=== PATIENT | male | born 1990 | race Caucasian/White ===

== ENCOUNTER 2017-11-11 08:38 | Day surgery (SDC) | payer OTHER, SELFPAY ==
[2017-11-07 13:41] VITALS: BMI 30.7
[2017-11-11] VITALS (8 sets, daily range): BP systolic 114–143; BP diastolic 78–96; PULSE 74–115; RESP 10–17; TEMP 36.1–36.8; O2SAT 92–100; BMI 30.2
[2017-11-11] MEDS: LACTATED RINGERS 1,000 ML 42 ML IV ×2 (09:06→10:40)
[2017-11-11] MEDS: MIDAZOLAM 2 MG/2 ML VIAL IV (09:28)
--- NOTE | 2017-11-11 09:39 | PM.OP.1 ---
Operative Date/Time/Diagnoses Date of procedure: 11/11/17 Time of procedure: 08:00 Pre-op diagnosis: Left peroneal tendinitis Left ankle ganglion cyst Post-op diagnosis: same Procedure & Clinicians Procedure: Open left peroneal tendon tenosynovectomy Left ankle ganglion cyst excision Left ankle peroneus quartus excision Same procedure as scheduled: Yes Indications: 36-year-old male with many years of left ankle pain located over the peroneal tendons coursing with them. He has failed a long course of physical therapy splinting pain medications and activity modifications. He was indicated for surgery secondary to persistent symptoms. The risks, benefits, alternatives to surgery were discussed the risks include pain, bleeding, infection, damage to nearby structures, lack of symptom relief, sural nerve injury, need for further procedures, implant complications, anesthetic complications, DVT, PE, stroke. He signed a written consent. Surgeon: Khoa Robison [employer] Laborer: Luciano Aguiar Click Yes if Unassisted: No Anesthesia Type: General and Local Operative Notes Findings: Ganglion cyst in the peroneal tendon sheath at the level of the distal fibula tip. Peroneus quartus was present with many fascial attachments to the longus tendon. Brevis had a low lying muscle belly. There is diffuse tenosynovitis. Closure Type: primary Specimen(s): none sent Estimated Blood Loss (mL): 5 Blood products transfused: none Tourniquet time (min): 51 Procedure in detail: The patient was met in the preop hold area on the day of the procedure. Operative extremity was signed. Consent was verified. He desired to proceed. He was brought to the operating room and surrendered to anesthesia. Once general anesthesia been obtained he was placed in a lateral position with the casas bag. An axillary roll was placed. All bony prominences were well padded. He was then prepped and draped in the standard sterile fashion. A surgical time-out was held where we confirmed the patient procedure, identity, allergies, images, antibiotics. All were in agreement we proceeded. An Esmarch was used to exsanguinate the limb and the tourniquet was elevated to 250 mm of mercury. An 8 cm incision was made directly over the course of the peroneal tendons and centered over the distal fibula tip. Sharp dissection was carried down to the peroneal tendon sheath and full-thickness skin flaps were created. The sural nerve or a branch of the sural nerve was seen distally near the incision site. It was protected during the case. I then made a small window superiorly in the peroneal tendon sheath and slid the scissors under that to free up any attached tendon. I then opened the peroneal tendon sheath completely to include the superior peroneal retinaculum and the inferior peroneal retinaculum. I then used scissor dissection to remove the extensive tenosynovitis and the ganglion cystic material from within the sheath. Peroneus quartus was seen in the typical location and had many attachments to pronators longus tendon. Peroneus Quartus was removed in its entirety. Peroneus brevis had low lying muscle belly and this was removed. The peroneal tendons themselves were healthy appearing without any degenerative tissue appreciated. I opened the distal portion near the peroneal tubercle as the tendon started to diverge and inspected them there as well. There were no bony prominences and the tubercle itself was smooth it was therefore left in place. Satisfied with the debridement I then irrigated the wound copiously. The superior and inferior peroneal retinaculum were repaired with interrupted 0 Vicryl. The peroneal tendon sheath was then repaired with a running 2 0 Vicryl. The subcuticular tissues were closed with a few 2 0 Vicryl and a running Monocryl was placed in the skin. 20 cc of 0.25% Marcaine without epinephrine was placed about the incision. Sterile dressing was then applied and a splint was placed with the ankle in an everted and dorsiflexed position. He was awakened and transition to the recovery room without issue. Complications: none Condition: stable Disposition: same day surgery Plan for aftercare: Nonweightbearing and splint for 2 weeks. Weightbearing as tolerated in cast for 2 weeks. Weightbearing as tolerated in boot for 2 weeks. Transition to a normal shoe with normal activities and then advance activities as tolerated.
[2017-11-11] MEDS: CEFAZOLIN 2 GM/100 ML FROZ.PIGGY IV (09:50)
--- NOTE | 2017-11-11 10:27 | SUR.OPER ---
Supine on padded OR bed, head on pillow, arms secured on padded arm boards at <90 degrees abduction, legs uncrossed, safety belt at thigh, tape over blanket over right lower leg, leg post at thigh for left operative leg.
[2017-11-11] MEDS: SODIUM CHLORIDE IRRIG SOLUTION 6,000 ML, EPINEPHrine 2 MG IRR ×2 (10:37→11:43)
[2017-11-11] MEDS: BUPIVACAINE 0.25% (PF) VIAL 30 ML INJ (10:41)
--- NOTE | 2017-11-11 13:00 | DI.RAD.S_ITS ---
PROCEDURE: XR KNEE LT 1TO2V INDICATIONS: POST OP ACL REPAIR TECHNIQUE: 3 views of the knee were acquired. COMPARISON: None. FINDINGS: Bones: No fractures or dislocations. No suspicious bony lesions. Recent ACL repair. Soft tissues: Joint effusion and gas is present status post recent ACL repair. Prepatellar soft tissue swelling. IMPRESSION: Recent ACL repair. Dictated by: Cleve VICENTE Interpreted: Álvaro Styles MD on 11/11/2017 at 13:33 Approved by: Álvaro Styles M.D. on 11/11/2017 at 13:58
[2017-11-11] MEDS: fentaNYL 100 MCG/2 ML INJ 50 MCG IV ×2 (13:27→13:32)
--- NOTE | 2017-11-11 13:32 | P.OP_ITS ---
Operative Date/Time/Diagnoses Date of procedure: 11/11/17 Time of procedure: 10:18 Pre-op diagnosis: Left ACL tear left meniscus tear Post-op diagnosis: same Procedure & Clinicians Procedure: left anterior cruciate ligament reconstruction with BTB autograft Left lateral meniscus debridement Same procedure as scheduled: Yes Indications: 27-year-old male sustained an ACL tear while he was skating on 26 August MRI and physical exam was consistent with an ACL tear and potentially meniscus injury. He underwent rehabilitation until his quadriceps was near full strength and range of motion was near full. He would like to return to skating and performing pivoting sports therefore reconstruction was selected. The risks, benefits, alternatives, were discussed with the patient. Risks include pain, bleeding, infection, lack of symptom relief, need for further procedures, implant complications, pain with kneeling, stiffness, repeat injury , DVT, P, and anesthetic complications. He signed a written consent form Surgeon: Khoa Robison [employer] Analyst: Luciano Aguiar Click Yes if Unassisted: No Anesthesia Type: General and Local Operative Notes Findings: examination under anesthesia: Range of motion was 0-135. Small effusion was present. He is stable to varus and valgus stressing at 0 and 30?. He is stable to dial at 30 and 90?. Jerad's was to be there was an abnormal pivot shift. Posterior drawer was stable. Diagnostic arthroscopy: Patellar cartilage was intact. Trochlear cartilage was intact. The gutters and suprapatellar pouch showed no loose bodies. The medial hemijoint showed the cartilage and meniscus to be intact. The lateral femoral condyle lateral tibial plateau was intact. Lateral meniscus had a partial tear at the root and a small piece was debrided. The lateral meniscus was stable however it could not be pulled in the joint. ACL was torn and scarred to the PCL. PCL was intact. Closure Type: primary Specimen(s): none sent Implants & Drains: Arthrex BTB tight rope Arthrex 9 x 20 mm titanium screw Estimated Blood Loss (mL): 25 Blood products transfused: none Tourniquet time (min): 130 Procedure in detail: The patient was met in the preoperative hold area the day of the procedure. Operative extremity signed. Consent was verified. He desired to proceed. He was brought to the operating room and surrendered anesthesia. Once general anesthesia been obtained he was placed in a supine position all bony prominences well padded. Examination under anesthesia was performed. He was then prepped and draped in the standard sterile fashion. A surgical time-out was held to confirm the patient procedure, that a, allergies, images, antibiotics. All were in agreement we proceeded. An Esmarch was used to exsanguinate the limb and the tourniquet was elevated to 250 mm of mercury. An 8 cm incision was made longitudinally just medial to midline from the inferior pole of the patella to the tibial tubercle. Sharp dissection was brought down to the level of the paratenon and full-thickness skin flaps were created. The paratenon was then split in line with its fibers and freed from the underlying tendon. I then measured the tendon to be 30 mm across and marked the central 10 mm. A 15 blade was placed at those locations and split the tendon longitudinally down to the tibial tubercle. I then marked a 20 mm x 10 mm bone block from the patella and a 35 mm x 10 mm bone block from the tibia. I used 2.0 mm drill in the corners and a sagittal saw to release the bone. A triangular shape was created for the patella and a trapezoidal shape for the tibia. The graft was then brought out of the wound bed released from the fat pad on its underside. He was then brought to the back table in prep. Followup prepping of the femoral bone block fit a 9.5 x 20 mm. The tendon itself was 50 mm. And the tibial bone block was a 10 x 35 mm. Standard diagnostic arthroscopy was performed utilizing anterolateral and anteromedial portal sites through the same incision. The anteromedial site was created under direct visualization. Findings of the diagnostic arthroscopy can be found above. I then interrogated the lateral meniscus root further and probed it extensively. I felt that because it was stable it was a better choice to leave it even though there was some evidence of a tear at that location. Loose fragments were then debrided with a biter. I then moved on to prep the notch. A sucker shaver was used to remove all ACL scar tissue back to the posterior edge of the lateral femoral condyle. The radiofrequency ablation Wand cleared additional tissue off of the bone. The shaver was then used in bur mode to performed a notchplasty of 1-2 mm of the anterior portion of the lateral femoral condyle. Satisfied with my preparation I moved on drilling. The tibial guide was brought in and placed in line with the posterior edge of the anterior horn of the lateral meniscus just anterior to the PCL and on the lateral edge of the medial tibial spine. The tibial tunnel was drilled with a 10 after the pin was placed and held with a Hu. The tunnel itself measured 45 mm. I then brought in the femoral guide and placed into position leave a 2 mm back wall and having just be off the articular surface distally. The bullet was brought down to the lateral femoral skin and a incision was made through the skin and ITB band. The bullet was then visualized going under the ITB band down to the lateral femur. The 10 mm flip cutter was then brought into the joint centrally where we were aiming it was flipped and we are satisfied with the position. The guide was removed and we drilled a 30 mm tunnel in the femur. Fiber stick was then passed down through each tunnel after the tunnel edges had been debrided with sucker shaver to ensure smooth passage. The graft was then brought in from the back table and passed up into the joint. Once the guide into the notch it was difficult to pass it into the femur I therefore took a small curette and removed the anterior portion of the femoral tunnel to allow for smooth return. We then were able to pass the bone block more easily and it buried self and the tunnel. The tight rope button was outside of the ITB band skin at that point and so we pulled on the strings and reduced it to the lateral femoral cortex under direct visualization. there was found to be approximately a 10 mm graft tunnel mismatch with some excess tibial bone block coming out the front. I then rotated the bone block 360? counter-clockwise and this shortened by approximately 5 mm. Satisfied with this,a large bump was then placed onto the distal femur and a posterior force was applied to the proximal tibia. The Nitinol wire was brought into the joint and a 9 mm x 20 mm tibial screw was placed while tension was applied to the graft. Jerad's was 1A following fixation. I then went back into the joint and visualized the graft and was satisfied with its position. 5 mm of excess tibial bone block was removed. The bone block was very well fixed.excess bone from graft preparation was then placed into the femoral graft site and tamped into place. A demineralized bone matrix was added to fill the void completely I then put demineralized bone matrix into the tibial block site. Then irrigated the wounds and closed them in layered fashion with 0 Vicryl in the ITB band 2 0 Vicryl in the lateral dermis and a running Monocryl in a lateral skin. The paratenon was closed with a running 0 Vicryl. Deep tissue was closed with an 0 Vicryl. Two 0 Vicryl was used in the dermis and a running Monocryl on the skin. 20 cc of 0.25% Marcaine were placed about the wounds. A sterile dressing was applied. Flat plate x-ray in the operating room showed good position of the tunnels. There is some question if the tibial screw was slightly divergent On the lateral x-ray. I decided to leave it as is because the graft was well fixed and the Jerad's and pivot shift was intact. We will continue to follow the position of the bone blocks and postoperative x-rays. he was then awakened and transferred to the recovery room. Complications: none Condition: stable Disposition: same day surgery Plan for aftercare: routine ACL protocol. Nonweightbearing for 2 weeks with the locked straight. Weightbearing as tolerated with the knee locked straight from 2-6 weeks. Range of motion unrestricted with physical therapy. Advance further per physical therapy protocol. nonweightbearing x-rays at the 2 week follow-up
[2017-11-11] MEDS: OXYCODONE IR 5 MG TABLET 10 MG PO (13:42)
== END 2017-11-11 14:35 | disposition home or self-care (01) ==
PROVIDERS: Visit Provider Orthopaedic Surgery
PROC: (CPT 29888; principal; 2017-11-11 09:45)
PROC: (CPT 29870; 2017-11-11 09:45)
DX: M23.269 Derangement of other lateral meniscus due to old tear or injury, unspecified knee (principal); M76.72 Peroneal tendinitis, left leg; M67.472 Ganglion, left ankle and foot; M65.9 Synovitis and tenosynovitis, unspecified; S83.512A Sprain of anterior cruciate ligament of left knee, initial encounter; M23.301 Other meniscus derangements, unspecified lateral meniscus, left knee; Y93.51 Activity, roller skating (inline) and skateboarding
CPT/HCPCS: 29888; 27630; 27899; 29881; 73560; J0171; J0690; J1100; J1885; J2250; J2405; J2704; J3010